=== PATIENT | female | born 1980 | race Caucasian/White ===

== ENCOUNTER → 2017-04-10 | Outpatient (CLI) | payer OTHER ==
[~2017-04-10] MED LIST: BUPIVACAINE MPF 0.5% 30 ML VIAL. ONE; LIDOCAINE 1% PF 30 ML VIAL. ONE
== END | disposition home or self-care (01) ==
LOC: SURG 14:47
PROVIDERS: ATTEND Anesthesiology Pain Medicine
DX: M47.812 Spondylosis without myelopathy or radiculopathy, cervical region (principal); Z72.0 Tobacco use; Z90.710 Acquired absence of both cervix and uterus
CPT/HCPCS: 64490; 64491; J2001; J3490

== ENCOUNTER → 2018-07-31 | Outpatient (CLI) | payer OTHER | END | disposition home or self-care (01) | LOC: SURG 10:59 | PROVIDERS: ATTEND Anesthesiology Pain Medicine | DX: M47.812 Spondylosis without myelopathy or radiculopathy, cervical region (principal); M19.90 Unspecified osteoarthritis, unspecified site; G89.4 Chronic pain syndrome; F11.90 Opioid use, unspecified, uncomplicated | CPT/HCPCS: 99214 ==

== ENCOUNTER 2020-09-10 21:10 | Emergency (ER) | payer MEDICAID ==
[~2020-09-10] VITALS: Ht 167.6 cm; Wt 100.0 kg
[2020-09-10 21:20] VITALS: BP 153/108
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
[2020-09-10] MEDS ORDERED: MORPHINE SULFATE 10 MG/ML SYRINGE. SQ ONE (21:30)
[2020-09-10] MEDS ORDERED: TETANUS AND DIPHTHERIA TOX/PF 0.5 ML VIAL. VAX IM ONE (21:30)
[2020-09-10] MEDS ORDERED: cefTRIAXone IM 1 GM VIAL IM ONE (21:30)
[2020-09-10] MEDS ORDERED: LIDOCAINE 2% 20 ML VIAL. IJ ONE (21:30)
[2020-09-10] MEDS ORDERED: BUPIVACAINE MPF 0.5% 30 ML VIAL. SQ ONE (21:30)
[2020-09-10] MEDS ORDERED: LIDOCAINE 2%/EPI 1:100,000 20 ML VIAL. ONE (21:32)
[2020-09-10] MEDS ORDERED: BACITRACIN ZINC TOPICAL OINT PACKET. TP ONE (21:37)
[2020-09-10] MEDS ORDERED: MUPIROCIN 2% TOPICAL OINTMENT 22GM TUBE. TP SCH (21:54)
[2020-09-10] MEDS ORDERED: ONDANSETRON ODT 4 MG TAB.RAPDIS ONE (22:08)
[2020-09-10] MEDS ORDERED: BUPIVACAINE MPF 0.25% 10 ML VIAL. ONE (22:13)
[2020-09-10] MEDS ORDERED: [UNRECOGNIZED DRUG - OTHER] ONE (22:13)
[2020-09-10] MEDS ORDERED: ONDANSETRON ODT 4 MG TAB.RAPDIS PO ONE (22:15)
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
[2020-09-10] MEDS ORDERED: DIPH,PERTUSS(ACELL),TET VAC/PF 0.5 ML SYRINGE. VAX IM ONE (22:30)
[2020-09-10] MEDS ORDERED: HYDR-1179 PO (23:47)
[2020-09-10] MEDS ORDERED: OXYC-325 PO (23:59)
[2020-09-11] MEDS ORDERED: CEPH750C9 PO (00:01)
--- NOTE | 2020-09-11 06:22 | EKG ---
[address] [address] Test Date: 2020-09-10 Test Time: 23:05:12 Pat Name: ADRIANA BURTON Department: Room: Gender: F Concrete Carpenter: : 1980 Requested By: BRAXTON AGOSTO Order Number: [id number] Reading MD: Measurements Intervals Rigby Rate: 83 P: 59 MN: 136 QRS: 66 QRSD: 80 T: 26 QT: 350 QTc: 417 Interpretive Statements SINUS RHYTHM NORMAL ECG RI6.02 No previous ECG available for comparison
== END 2020-09-11 00:05 | disposition home or self-care (01) ==
LOC: ER 21:10
DX: S81.812A Laceration without foreign body, left lower leg, initial encounter (principal); M25.572 Pain in left ankle and joints of left foot; F17.210 Nicotine dependence, cigarettes, uncomplicated; Z88.8 Allergy status to other drugs, medicaments and biological substances; W20.8XXA Other cause of strike by thrown, projected or falling object, initial encounter; Y93.89 Activity, other specified; Y92.89 Other specified places as the place of occurrence of the external cause; Y99.8 Other external cause status
CPT/HCPCS: 12004; 73590; 73610; 73630; 90471; 90715; 93005; 96365; 96372; 99284; J0696; J2001; J2270; Q0162